=== PATIENT | female | born 1990 | race Hispanic/Latino ===

== ENCOUNTER 2025-02-22 08:38 | Emergency (ER) | payer SELFPAY ==
[2025-02-22 08:39] VITALS: BP 106/67; PULSE 83; RESP 16; TEMP 36.7; O2SAT 99; BMI 23.9
--- NOTE | 2025-02-22 09:11 | CT_ITS ---
PROCEDURE: ABDOMEN/PELVIS WITHOUT CONT 02/22/2025 REASON FOR EXAM: ABDOMINAL PAIN TECHNIQUE: Procedure Code: CTABDPEL Modality: CT Procedure: ABDOMEN/PELVIS WITHOUT CONT Noncontrast technique limits evaluation of the abdominal and pelvic viscera. Coronal and Sagittal reconstruction series were provided. One or more dose reduction techniques were used (e.g., Automated exposure control, adjustment of the mA and/or kV according to patient size, use of iterative reconstruction technique). RADIATION DOSE SUMMARY: CTDlvol: 6.45 mGy DLP: 346.33 mGycm COMPARISON: None. FINDINGS: Lung bases: Clear. Liver: Unremarkable. Gallbladder: Cholelithiasis. No biliary dilation. Spleen: Unremarkable. Pancreas: Unremarkable. Adrenals: Unremarkable. Kidneys: No hydronephrosis or nephrolithiasis. Bladder: Unremarkable. Reproductive Organs: IUD in place. Bowel: No bowel wall thickening. No bowel obstruction. Appendix: Unremarkable. Lymph nodes: No lymphadenopathy. Vasculature: No aneurysm. Peritoneum / Retroperitoneum: No free air or free fluid. Bones: No acute bony abnormalities. Abdominal wall: A 2.4 x 6.7 by 12 cm lipoma at the right rectus abdominus in the abdominal wall. CT/Abdomen/Pelvis without Cont IMPRESSION: No acute abdominopelvic abnormalities. Reading Location: [facility] [place]
--- NOTE | 2025-02-22 09:12 | EDS_ITS ---
HPI HPI - Female History of Present Illness Chief Complaint: Complaint Detail of Chief Complaint: Dysuria Informant: patient Narrative Narrative: Patient presents with dysuria as well as urgency and frequency and only urinating small amounts of urine for about a week. No history of UTIs. 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 She has no medical history. No prior surgeries. No allergies. She has had no fever. She denies back pain or nausea vomiting. Pain is severe in her lower abdomen. She does not think she is as she does have an IUD. PFSH PFSH Medical History no medical history Home Medications ?Medication ?Instructions ?Recorded ?Last Taken ?Type cephalexin 500 mg capsule 500 mg PO Q6 #28 CAPSULES Unknown Rx phenazopyridine 200 mg tablet 200 mg PO BID PRN PRN Pa in #10 tabs 02/22/25 Unknown Rx (Pyridium) Allergy/AdvReac Type Severity Reaction Status Date / Time Unable to Assess Allergy Verified 02/22/25 08:40 Family History no significant family his Surgical History no surgical history Social History Smoking Status: Never smoker ROS ROS ED Review of Systems ROS Unobtainable: other Constitutional Constitutional ED: Reports lethargy; Denies chills, fever(s), sweats or weight loss Eyes Eyes: Denies blurry vision, change in vision or diplopia ENT ENT ED: Denies rhinorrhea or sore throat Cardiovascular Cardiovascular: Denies chest pain, orthopnea or racing heartbeat Respiratory/Chest Respiratory/Chest: Denies cough, dyspnea, dyspnea on exertion, orthopnea or sputum Gastrointestinal Gastrointestinal: Reports abdominal pain; Denies diarrhea, nausea or vomiting Genitourinary Genitourinary ED: Reports dysuria and urinary frequency; Denies hematuria Musculoskeletal Musculoskeletal: Denies arthralgias, back pain, myalgias or neck pain Integumentary Denies abscess, Abrasions or rash Neurologic Neurologic: Denies headache(s) or weakness Psychiatric Psychiatric: Denies anxiety, depression or suicidal thoughts Endocrine Endocrinology: Denies polydipsia, polyphagia or polyuria Hematologic/Lymphatic Hematologic/Lymphatic: Denies easy bleeding, easy bruising or lymphadenopathy Allergic/Immunologic Allergic/Immunologic ED: Denies mouth swelling, tongue swelling or urticaria EXAM Physical Exam Const Vital Signs: 02/22/25 08:39 02/22/25 12:39 Temperature 98.0 F Temperature Source Oral Pulse Rate 83 Respiratory Rate 16 Blood Pressure 106/67 129/111 H Blood Pressure Mean 80 117 Pulse Ox 99 Oxygen Delivery Method Room Air MDM MDM MDM Narrative Medical decision making narrative: Patient describing significant lower pelvic pain. She describing dysuria and urgency and frequency. IV line established. She was medicated with Toradol. She was given Pyridium based on her symptoms and suspecting UTI. Concerned about also kidney stone with obstruction given the significant amount of pain she is having. CBC with differential obtained showed white count of 14.6 with hemoglobin 11 and platelet count of 334. Chemistries unremarkable. LFTs were normal. Urinalysis positive for 500 leukocyte esterase as well as 50-100 RBCs and greater than 100 WBCs. Patient had +3 bacteria. hCG was negative. I did obtain a CT scan without contrast of the abdomen pelvis that showed cholelithiasis. No obstructing kidney stones noted. No other significant findings on exam. Patient was given Rocephin 1 g IV. She will be discharged to home with a prescription for Keflex. Will send off a urine culture. Will treat with Pyridium as well. Advised to follow-up with primary care physician or primary care physician on-call for no doc within the next 3 to 5 days. Patient advised to return if vomiting, high fevers, worsening pain, or condition should worsen anyway. Lab Data Attestation: I reviewed the patient's lab results. Labs: Laboratory Results - last 24 hr 02/22/25 09:15 WBC 14.6 H RBC 3.79 L Hgb 11.0 L Hct 33.0 L MCV 87.1 MCH 29.0 MCHC 33.3 RDW Std Deviation 43.6 RDW Coeff of Alex 13.8 Plt Count 334 MPV 9.4 Immature Gran % (Auto) 0.300 Neut % (Auto) 68.5 Lymph % (Auto) 21.9 [place] % (Auto) 7.8 Eos % (Auto) 1.2 Baso % (Auto) 0.3 Absolute Neuts (auto) 10.0 H Absolute Lymphs (auto) 3.19 Nucleated RBC % 0 Sodium 139 Potassium 3.3 Chloride 103 Carbon Dioxide 25.6 Anion Gap 10 BUN 9 Creatinine 0.55 L Estim Creat Clear Calc 111.84 Est GFR (MDRD) Non-Af 122 BUN/Creatinine Ratio 16.4 Glucose 95 Calcium 9.2 Total Bilirubin 0.32 Direct Bilirubin 0.14 AST 16 ALT 20 Alkaline Phosphatase 70 Total Protein 7.0 Albumin 4.0 Globulin 3.0 Urine Color Yellow Urine Clarity Turbid Urine pH 6.0 Ur Specific [place] 1.025 Urine Protein 100 H Urine Glucose (UA) Normal Urine Ketones Negative Urine Occult Blood 250 H Urine Nitrite Negative Urine Bilirubin Negative Urine Urobilinogen Normal Ur Leukocyte Esterase 500 H Urine RBC 50-100 SEEN Urine WBC >100 SEEN Ur Squamous Epith Cells 0-5 SEEN Urine Bacteria 3+ Urine Mucus 1+ Urine Test Negative Radiography Diagnostic Testing: Clinical Impression(s) from Imaging Studies Abdomen/Pelvis CT 02/22/25 09:11 IMPRESSION: No acute abdominopelvic abnormalities. Reading Location: [facility] Discharge Plan Triage Chief Complaint: Complaint ED Provider: Horacio Rosales Dx/Rx/DC Orders Clinical Impression: Urinary tract infection Instructions: Urinary Tract Infections in Women Prescriptions: New phenazopyridine [Pyridium] 200 mg tablet 200 mg PO BID PRN PRN (Reason: Pain) Qty: 10 0RF cephalexin 500 mg capsule 500 mg PO Q6 Qty: 28 0RF Primary Care Provider: Care Physician,No Primary Referrals: [facility] [Provider Group] - 3-5 Days Care Physician,No Primary [Primary Care Provider, Medical] Print Language: English Disposition Disposition: Home, Self Care
[2025-02-22 10:04] LABS: Hematocrit 33.0 % (37-47); Hemoglobin 11.0 g/dL (12.0-15.0); Immature Granulocytes Count 0.050 X10^3/uL (0.0-0.0); Mean Corp Hgb Conc 33.3 g/dL (32-36); Mean Corpuscular Volume 87.1 fL (81-99); Mean Platelet Vol. 9.4 fl (6.2-12.0); NRBC Flagged by Analyzer 0 % (0-5); Platelet Count 334 K/mm3 (150-450); RBC Distribution Width CV 13.8 % (11.6-14.6); RBC Distribution Width SD 43.6 fl (35.1-43.9); Red Blood Count 3.79 M/mm3 (4.2-5.4); White Blood Count 14.6 K/mm3 (4.4-11.0)
[2025-02-22] MEDS: Ketorolac 30 MG/ML Syringe IV (10:04)
[2025-02-22] MEDS: 0.9% Normal Saline (1000mL) 1,000 ML 150 ML IV (10:04)
[2025-02-22 10:06] LABS: Color, Urine Yellow (Yellow); Glucose, Dipstick Normal (Normal); Ketone-Dipstick Negative (Negative); Leukocyte Esterase-Dipstick 500 /ul (Negative); Nitrite-Dipstick Negative (Negative); Occult Blood-Urine 250 /ul (Negative); Protein-Dipstick 100 mg/dl (Negative); Specific Gravity, Urine 1.025 (1.002-1.030); Urine Bilirubin Dipstick Negative (Negative)
[2025-02-22 10:22] LABS: Mucous, Urine 1+ /hpf (<or=2+); Red Blood Cells-Urine 50-100 SEEN /hpf (0-5); Squamous Epithelial Cells - UA 0-5 SEEN /hpf (5-10)
[2025-02-22 10:28] LABS: Anion Gap 10 (5-15); BUN 9 mg/dL (4-19); BUN/Creat Ratio 16.4 RATIO (10-20); Calcium,Total 9.2 mg/dL (7.6-11.0); Carbon Dioxide 25.6 mmol/L (21.0-32.0); Chloride 103 mmol/L (98-108); Estimated Creatinine Clearance 111.84 ml/min (50-250); Glucose 95 mg/dL (70-99); Potassium 3.3 mmol/L (3.3-5.1)
[2025-02-22 10:53] LABS: Internal QC Validated? YES +Cl - CLEAR BKGD; Pregnancy, Urine Negative Negative
[2025-02-22 11:35] LABS: AST(SGOT) 16 U/L (<=31); Alanine Aminotransfer ALT/SGPT 20 U/L (<=34); Albumin, Serum 4.0 g/dL (3.5-5.0); Alkaline Phosphatase 70 U/L (35-104); Bilirubin, Direct 0.14 mg/dL (0.00-0.30); Globulin 3.0 g/dL (2.2-4.2)
[2025-02-22 12:39] VITALS: BP 129/111
[2025-02-22 13:07] VITALS: BP 114/65; PULSE 80; RESP 16; TEMP 36.7; O2SAT 99
== END 2025-02-22 13:10 | disposition home or self-care (01) ==
PROVIDERS: Emergency Provider Emergency Medicine; Visit Provider Emergency Medicine
DX: N39.0 Urinary tract infection, site not specified (principal)
CPT/HCPCS: 74176; 80048; 80076; 81001; 81025; 85025; 96361; 96365; 96375; 99282; A4216